=== PATIENT | female | born 1970 | race Caucasian/White ===

== ENCOUNTER → 2023-06-27 08:58 | Outpatient (REF) | payer OTHER, SELFPAY | LOC: WDC 08:58 | PROVIDERS: ATTENDING PHYSICIAN Surgery Surgical Oncology; FAMILY PHYSICIAN Internal Medicine; REFERRING PHYSICIAN Plastic Surgery | DX: Z12.31 Encounter for screening mammogram for malignant neoplasm of breast (principal); Z85.3 Personal history of malignant neoplasm of breast; N60.02 Solitary cyst of left breast | CPT/HCPCS: 76642; 77061; 77065 ==

== ENCOUNTER → 2023-07-19 14:05 | Outpatient (REF) | payer OTHER, SELFPAY | LOC: RCS 14:05 | PROVIDERS: ATTENDING PHYSICIAN Internal Medicine Cardiovascular Disease; FAMILY PHYSICIAN Internal Medicine | DX: I35.0 Nonrheumatic aortic (valve) stenosis (principal); C50.811 Malignant neoplasm of overlapping sites of right female breast | CPT/HCPCS: 93306; 93356 ==

== ENCOUNTER → 2023-11-26 15:29 | Outpatient (REF) | payer OTHER, SELFPAY | LOC: HWRAD 15:29 | PROVIDERS: ATTENDING PHYSICIAN Nurse Practitioner Adult Health | DX: M54.6 Pain in thoracic spine (principal); M54.16 Radiculopathy, lumbar region | CPT/HCPCS: 72072; 72110 ==

== ENCOUNTER → 2024-10-01 08:29 | Outpatient (REF) | payer OTHER, SELFPAY | LOC: HWWDC 08:29 | PROVIDERS: ATTENDING PHYSICIAN Internal Medicine | DX: R79.89 Other specified abnormal findings of blood chemistry (principal); Z78.0 Asymptomatic menopausal state; Z12.31 Encounter for screening mammogram for malignant neoplasm of breast | CPT/HCPCS: 76700; 77063; 77067 ==